=== PATIENT | male | born 1990 | race Caucasian/White ===

== ENCOUNTER 2017-07-10 17:05 | Emergency (ER) | payer OTHER ==
[~2017-07-10] VITALS: Ht 185.4 cm; Wt 118.3 kg
[2017-07-10 17:07] VITALS: BP 147/88
[2017-07-10] MEDS ORDERED: FLUORESCEIN OPHTHALMIC 1 MG STRIP ONE (17:20)
[2017-07-10] MEDS ORDERED: PROPARACAINE OPHTH 0.5%, 15ML ONE (17:20)
[2017-07-10] MEDS ORDERED: FLUORESCEIN OPHTHALMIC 1 MG STRIP EACHEYE ONE (17:30)
[2017-07-10] MEDS ORDERED: PROPARACAINE OPHTH 0.5%, 15ML EACHEYE ONE (17:30)
[2017-07-10] MEDS ORDERED: ERYTHROMYCIN OPHTH 0.5%, 1GM EACHEYE ONE (18:00)
== END 2017-07-10 18:22 | disposition home or self-care (01) ==
LOC: ED 18:02
DX: T15.11XA Foreign body in conjunctival sac, right eye, initial encounter (principal); X58.XXXA Exposure to other specified factors, initial encounter; Y93.89 Activity, other specified; Y92.89 Other specified places as the place of occurrence of the external cause; Y99.8 Other external cause status
CPT/HCPCS: 99283

== ENCOUNTER 2020-09-12 15:56 | Emergency (ER) | payer OTHER ==
[~2020-09-12] VITALS: Ht 185.4 cm; Wt 120.6 kg
[2020-09-12 15:59] VITALS: BP 141/89
[2020-09-12] MEDS ORDERED: LIDOCAINE-MPF 1%, 5ML ONE (16:21)
--- NOTE | 2020-09-12 16:26 | NUR ---
SAMUEL PULLED FOR ERPA ADMIN
[2020-09-12] MEDS ORDERED: LIDOCAINE-MPF 1%, 5ML INFIL ONE (16:30)
[2020-09-12] MEDS ORDERED: NEOSPORIN OINT. PKT 1 PACKET ONE (16:45)
--- NOTE | 2020-09-12 16:55 | NUR ---
WOUND DRESSED WITH ABX OINTMENT AND BANDAID.
== END 2020-09-12 17:16 | disposition home or self-care (01) ==
LOC: ED 16:30
DX: S51.812A Laceration without foreign body of left forearm, initial encounter (principal); W26.8XXA Contact with other sharp object(s), not elsewhere classified, initial encounter; Y93.89 Activity, other specified; Y92.89 Other specified places as the place of occurrence of the external cause; Y99.8 Other external cause status
CPT/HCPCS: 12031; 99284